=== PATIENT | male | born 1995 | race Caucasian/White ===

== ENCOUNTER 2019-07-18 22:16 | Emergency (ER) | payer OTHER ==
[~2019-07-18] VITALS: Ht 185.4 cm; Wt 61.2 kg
[2019-07-18 22:25] VITALS: Ht 185.4 cm; Wt 61.2 kg
[2019-07-18 22:30] VITALS: BP 123/85
== END 2019-07-18 22:30 | disposition other institution (70) ==
LOC: ED 22:16
DX: Z02.89 Encounter for other administrative examinations (principal)